=== PATIENT | male | born 1980 | race African-American/Black ===

== ENCOUNTER 2018-01-25 11:36 | Emergency (ER) | payer SELFPAY ==
[2018-01-25] MEDS: KETOROLAC TROMETHAMINE 10 MG TAB PO (12:00)
== END 2018-01-25 13:18 | disposition home or self-care (01) ==
LOC: M ED 11:36
DX: S39.012A Strain of muscle, fascia and tendon of lower back, initial encounter (principal); W00.9XXA Unspecified fall due to ice and snow, initial encounter; Y92.512 Supermarket, store or market as the place of occurrence of the external cause
CPT/HCPCS: 73564